=== PATIENT | male | born 1990 | race Caucasian/White ===

== ENCOUNTER 2016-05-13 20:49 | Emergency (ER) | payer OTHER ==
[~2016-05-13] VITALS: Ht 182.9 cm; Wt 79.0 kg
[2016-05-13 20:51] VITALS: Ht 182.9 cm; Wt 79.0 kg
[2016-05-13] MEDS ORDERED: IBUP800T25 PO (21:51)
[2016-05-13] MEDS ORDERED: ACET325T33 PO (21:52)
--- NOTE | 2016-05-13 22:54 | ERD ---
ER Documentation Chief Complaint Date/Time DATE: 05/13/16 TIME: 22:49 Chief Complaint painful jeremie-anal abscess x 2-3 days HPI This is a 25-year-old male presenting to the emergency department complaining of a painful lesion to his cleft of his right buttock region on/off for the past year but it has exacerbated in the past 2-3 days. Patient states that he has been seen by different urgent care yesterday and they gave him an antibiotic metronidazole which did not help him. Patient states urgent care recommended for him to follow-up with a surgeon. Patient denies any fevers. Denies any drainage. Patient states that he has taken ibuprofen for pain which did not help him. ROS All systems reviewed and are negative except as per history of present illness. Medications Home Meds Active Scripts Acetaminophen* (Tylenol*) 325 Mg Tablet, 650 MG PO Q4H Y for MILD PAIN LEVEL 1-3 , #30 TAB Prov:CEASAR VILLARREAL PA-C 05/13/16 Ibuprofen* (Motrin*) 800 Mg Tab, 800 MG PO Q6H Y for PAIN AND OR ELEVATED TEMP, #30 TAB Prov:CEASAR VILLARREAL PA-C 05/13/16 Allergies Allergies: Coded Allergies: No Known Allergy (Unverified , 05/13/16) PMhx/Soc Medical and Surgical Hx: pt denies Medical Hx, pt denies Surgical Hx Hx Alcohol Use: No Hx Substance Use: No Hx Tobacco Use: No Smoking Status: Never smoker Physical Exam Vitals Vital Signs Date Time Temp Pulse Resp B/P Pulse Ox O2 Delivery O2 Flow Rate FiO2 05/13/16 20:51 98.5 96 20 104/60 98 Physical Exam General: WD/WN, in no apparent distress, non-toxic appearing HENT: NC/AT Eyes: Conjunctiva normal Neck: Supple Pulm: Clear to auscultation, normal labored breathing; no wheezing/rales/ rhonchi heard CV: Good capillary refill GI: Non-distended, no guarding Back: No masses Ext: No clubbing, cyanosis, or edema Neuro: Moves on all fours Skin: 2cm indurated papule in the right upper cleft of buttock, no erythema, warmth or purulent Normal turgor, color, and temperature. No ulcerations or rashes noted. Psych: Normal mood Procedures/MDM This is a 25-year-old male presenting to the emergency department with a pilonidal cyst in the cleft. On examination it did not appear to be infected, the lesion was small there is no erythema or purulence or warmth. I discussed with patient that this would need to be followed up with a surgeon to get it removed. I discussed to continue the antibiotic as prescribed by the other doctor. Discussed return to the ER for any worsening signs or symptoms. was also consulted regarding patient, he has evaluated patient and agrees with plan above. Patient is stable for discharge with precautions to return the ER for any worsening symptoms. He understands and agrees. Prescription for ibuprofen Tylenol was provide Departure Diagnosis: Primary Impression: Pilonidal cyst Condition: Stable Patient Instructions: Pilonidal Cyst, Pilonidal Cyst, Not Infected Referrals: [facility] YOU HAVE RECEIVED A MEDICAL SCREENING EXAM AND THE RESULTS INDICATE THAT YOU DO NOT HAVE A CONDITION THAT REQUIRES URGENT TREATMENT IN THE EMERGENCY DEPARTMENT. FURTHER EVALUATION AND TREATMENT OF YOUR CONDITION CAN WAIT UNTIL YOU ARE SEEN IN YOUR DOCTORS OFFICE WITHIN THE NEXT 1-2 DAYS. IT IS YOUR RESPONSIBILITY TO MAKE AN APPOINTMENT FOR FOLOW-UP CARE. IF YOU HAVE A PRIMARY DOCTOR --you should call your primary doctor and schedule an appointment IF YOU DO NOT HAVE A PRIMARY DOCTOR YOU CAN CALL OUR PHYSICIAN REFERRAL HOTLINE AT IF YOU CAN NOT AFFORD TO SEE A PHYSICIAN YOU CAN CHOSE FROM THE FOLLOWING [facility] [address] [facility]. [facility] [address] [facility] [facility] [address] [facility]. [facility] [address] [facility] [address] [facility]. [facility]. [address] Additional Instructions: FOLLOW UP WITH YOUR PRIMARY CARE PHYSICIAN TOMORROW.Return to this facility if you are not improving as expected. Return to this facility if you are not improving as expected. Take all medicines as directed. BASHARDOUST,NUSHA N. PA-C May 13, 2016 22:54
== END 2016-05-13 22:24 | disposition home or self-care (01) ==
LOC: FTE 20:49
DX: L05.91 Pilonidal cyst without abscess (principal)
CPT/HCPCS: 99283

== ENCOUNTER 2016-07-08 05:01 | Emergency (ER) | payer OTHER ==
[~2016-07-08] VITALS: Ht 182.9 cm; Wt 79.5 kg
[~2016-07-08 05:01] MED LIST: ACET325T33 PO; IBUP800T25 PO
[2016-07-08 05:04] VITALS: Ht 182.9 cm; Wt 79.5 kg
[2016-07-08] MEDS ORDERED: SOD CHLORIDE 0.9% 1,000 ML IV STA (05:14)
[2016-07-08] MEDS ORDERED: ONDANSETRON 4 MG INJ IV STA (05:14)
[2016-07-08] MEDS ORDERED: morphine 4 MG/ML VIAL IV STA (05:14)
[2016-07-08] MEDS ORDERED: KETOROLAC 30 MG INJ IV STA (05:14)
[2016-07-08 05:27] LABS: ADD SCAN DIFF NO
[2016-07-08 05:30] LABS: ABNORMAL IP MESSAGE 1; HEMATOCRIT 44.7 % (42.0-52.0); HEMOGLOBIN 15.5 g/dl (14.0-18.0); MEAN CORPUSCULAR HEMOGLOBIN 30.6 pg (29.0-33.0); MEAN CORPUSCULAR HGB CONC 34.7 g/dl (32.0-37.0); MEAN CORPUSCULAR VOLUME 88.3 fl (82.0-101.0); MEAN PLATELET VOLUME 10.2 fl (7.4-10.4); PLATELET COUNT 226 10^3/UL (140-415); RED BLOOD COUNT 5.06 10^6/ul (4.70-6.10); RED CELL DISTRIBUTION WIDTH 12.1 % (11.5-14.5); WHITE BLOOD COUNT 11.6 10^3/ul (4.8-10.8)
[2016-07-08 05:47] LABS: CREATININE 0.88 mg/dl (0.61-1.24)
[2016-07-08 05:48] LABS: CALCIUM 9.7 mg/dl (8.4-10.2)
--- NOTE | 2016-07-08 05:52 | RADRPT ---
PROCEDURE: CT ABDOMEN/PELVIS WITHOUT CONTRAST CLINICAL INDICATION: 26-year-old male with left-sided abdominal pain. TECHNIQUE: The study was performed utilizing a GE [id number] VCT 64-slice CT scanner. Direct axia l sections were obtained through the abdomen and pelvis without the use of intravenous contrast mate rial. Sagittal and coronal reformations were obtained. Automated exposure control and iterative mohan nstruction techniques were utilized for this examination. The images were reviewed on a PACS workst atAtreaon. CTD/vol = 11.4 mGy; Total Exam DLP = 702.7 mGy-cm. COMPARISON: None. FINDINGS: The lung bases are unremarkable. There is no evidence for significant pleural effusion. The liver has a normal size and contour without focal areas of abnormal density. No intrahepatic nor extrahepa tic biliary ductal dilatation is seen. The gallbladder demonstrates no wall thickening nor perichole cystic fluid. No biliary stones are evident. The pancreas is without areas of abnormal attenuation. The spleen is identified and has a normal size without abnormal density. The adrenal glands are unr emarkable. The kidneys are without abnormal density. No hydroureteronephrosis nor nephroureterolithi asis is evident. The urinary bladder contains urine. There is mild retained stool within the ascendi ng and transverse colon without obstruction. The appendix is visualized and is without abnormal thic kening or surrounding inflammatory reaction. Diffuse shotty mesenteric lymph nodes are seen. There is no significant free fluid. The aortoiliac vessels are without aneurysmal dilatation. The osseous structures are intact. IMPRESSION: 1. No CT evidence for obstructive uropathy or renal calculi. 2. Mild retained stool without obstruction. 3. No CT evidence for appendicitis. 4. Shotty mesenteric lymph nodes. .Saúl Olmedo MD, MD Date Time Electronically viewed and signed by .Saúl Olmedo MD, MD on 07/08/2016 05:52 .M/
[2016-07-08] MEDS ORDERED: POTASSIUM CHLORIDE (SR) 20 MEQ TAB PO STA (06:03)
[2016-07-08 06:07] VITALS: BP 118/85; PULSE 75; RESP 16
[2016-07-08] MEDS ORDERED: IBUP-1542 PO (06:09)
[2016-07-08 06:19] LABS: URINE BLOOD (Dip) POC 3+ (NEGATIVE)
[2016-07-08 06:27] LABS: MONOCYTE # 0.7 10^3/ul (0.3-0.9)
[2016-07-08 06:29] LABS: EOSINOPHILS # 0.3 10^3/ul (0.0-0.5); NEUTROPHIL # 5.2 10^3/ul (1.6-7.5)
--- NOTE | 2016-07-08 06:35 | ERD ---
ER Documentation Chief Complaint Date/Time DATE: 07/08/16 TIME: 06:30 Chief Complaint woke up suddenly with severe left flank pain HPI 26-year-old male with no significant past medical history presenting with sudden onset of severe left-sided flank pain radiating to the left groin. His pain is a 10 out of 10. Constant since it started. No associated fever, chills , dysuria, or hematuria. He had episodes of vomiting prior to arrival. He has never had pain like this before. He denies any history of kidney stones. ROS All systems reviewed and are negative except as per history of present illness. Medications Home Meds Active Scripts Ibuprofen* (Motrin*) 600 Mg Tab, 600 MG PO Q6H Y for PAIN AND OR ELEVATED TEMP, #30 TAB Prov:ARTIS GROVE MD 07/08/16 Acetaminophen* (Tylenol*) 325 Mg Tablet, 650 MG PO Q4H Y for MILD PAIN LEVEL 1-3 , #30 TAB Prov:CEASAR VILLARREAL PA-C 05/13/16 Ibuprofen* (Motrin*) 800 Mg Tab, 800 MG PO Q6H Y for PAIN AND OR ELEVATED TEMP, #30 TAB Prov:CEASAR VILLARREAL PA-C 05/13/16 Allergies Allergies: Coded Allergies: No Known Allergy (Unverified , 05/13/16) PMhx/Soc Medical and Surgical Hx: pt denies Medical Hx, pt denies Surgical Hx History of Surgery: No Anesthesia Reaction: No Hx Neurological Disorder: No Hx Respiratory Disorders: No Hx Cardiac Disorders: No Hx Psychiatric Problems: No Hx Miscellaneous Medical Probl: No Hx Alcohol Use: No Hx Substance Use: No Hx Tobacco Use: No Smoking Status: Former smoker FmHx Family History: No diabetes Physical Exam Vitals Vital Signs Date Time Temp Pulse Resp B/P Pulse Ox O2 Delivery O2 Flow Rate FiO2 07/08/16 06:07 75 16 118/85 97 07/08/16 05:04 98.6 94 20 121/87 100 Physical Exam Const: Nontoxic, severe distress secondary to pain, writhing around in bed Head: Atraumatic Eyes: Normal Conjunctiva ENT: Normal External Ears, Nose and Mouth. Neck: Full range of motion. No meningismus. Resp: Clear to auscultation bilaterally Cardio: Regular rate and rhythm, no murmurs Abd: Soft, non distended. Left lower quadrant tender to deep palpation. No rebound or guarding. Normal bowel sounds Skin: No petechiae or rashes Back: No midline or flank tenderness Ext: No cyanosis, or edema Neur: Awake and alert Psych: Normal Mood and Affect Result Diagram: 07/08/16 0518 07/08/16 0510 Results 24 hrs Laboratory Tests Test 07/08/16 05:10 07/08/16 05:18 07/08/16 05:21 Anion Gap 16 Blood Urea Nitrogen 12mg/dl Calcium Level 9.7mg/dl Carbon Dioxide Level 29mmol/L Chloride Level 104mmol/L Creatinine 0.88mg/dl Glucose Level 73mg/dl Potassium Level 3.0mmol/L Sodium Level 146mmol/L Hematocrit 44.7% Hemoglobin 15.5g/dl Mean Corpuscular Hemoglobin 30.6pg Mean Corpuscular Hemoglobin Concent 34.7g/dl Mean Corpuscular Volume 88.3fl Mean Platelet Volume 10.2fl Platelet Count 27998^3/UL Red Blood Count 5.0610^6/ul Red Cell Distribution Width 12.1% White Blood Count 11.610^3/ul Bedside Urine Blood 3+ Bedside Urine Glucose (UA) Negative Bedside Urine Ketones (LAB) Trace Bedside Urine Leukocyte Esterase (L Negative Bedside Urine Nitrite (LAB) Negative Bedside Urine Protein (LAB) 1+ Bedside Urine pH (LAB) 6.0 Current Medications Medications (Trade) Dose Ordered Sig/Deedee Route PRN Reason Start Time Stop Time Status Last Admin Dose Admin Sodium Chloride (NS) 1,000 ml @ 1,000 mls/hr Q1H STAT IV 07/08/16 05:14 07/08/16 06:13 DC 07/08/16 05:34 Morphine Sulfate (morphine) 4 mg ONCE STAT IV 07/08/16 05:14 07/08/16 05:16 DC 07/08/16 05:34 Ondansetron HCl (Zofran Inj) 4 mg ONCE STAT IV 07/08/16 05:14 07/08/16 05:16 DC 07/08/16 05:34 Ketorolac Tromethamine (Toradol) 30 mg ONCE STAT IV 07/08/16 05:14 07/08/16 05:16 DC 07/08/16 05:34 Potassium Chloride (Klor-Con 20) 40 meq ONCE STAT PO 07/08/16 06:03 07/08/16 06:05 DC Procedures/MDM EMERGENT LABS AND DIAGNOSTIC STUDIES: Lab Results above were reviewed and interpreted by me. CBC showed mild leukocytosis BMP showed hypokalemia Urinalysis showed blood without evidence of infection Radiology Results as interpreted by Radiology below were reviewed by Anju Grove MD: CT abdomen and pelvis was done and did not show any acute abnormalities other than mild mesenteric lymphadenopathy and constipation Initial Nursing notes reviewed. Previous Medical Records requested via the Electronic Health Record. EMERGENCY DEPARTMENT COURSE / MEDICAL DECISION MAKING: The patient is presenting with severe left flank pain. His vitals are stable and he is afebrile. I suspect that he has a kidney stone. Less likely pyelonephritis or retroperitoneal hemorrhage. A CT abdomen and pelvis was done and did not show any acute abnormalities. His urinalysis did show blood, so it is possible the patient recently passed a kidney stone. I give him IV fluids, pain medications, and antiemetics with resolution of his pain. Upon reevaluation the patient has no tenderness of his abdomen. He is tolerating liquids by mouth. He was given 40 mEq of potassium orally. I discussed the results with the patient. Return precautions were discussed. I believe he is stable for discharge at this time. Patient's blood pressure was elevated (>120/80) but appears stable without evidence of hypertensive emergency or urgency. The patient was counseled about the risks of hypertension and urged to pursue outpatient monitoring and therapy within a week with their primary care physician. Departure Diagnosis: Primary Impression: Acute flank pain Additional Impressions: Nausea and vomiting Vomiting type: unspecified Vomiting Intractability: non-intractable Qualified Code: R11.2 - Non-intractable vomiting with nausea, unspecified vomiting type Hypokalemia Condition: Stable Patient Instructions: Nausea and Vomiting-Adult, Flank Pain, Uncertain Cause Referrals: [facility] YOU HAVE RECEIVED A MEDICAL SCREENING EXAM AND THE RESULTS INDICATE THAT YOU DO NOT HAVE A CONDITION THAT REQUIRES URGENT TREATMENT IN THE EMERGENCY DEPARTMENT. FURTHER EVALUATION AND TREATMENT OF YOUR CONDITION CAN WAIT UNTIL YOU ARE SEEN IN YOUR DOCTORS OFFICE WITHIN THE NEXT 1-2 DAYS. IT IS YOUR RESPONSIBILITY TO MAKE AN APPOINTMENT FOR FOLOW-UP CARE. IF YOU HAVE A PRIMARY DOCTOR --you should call your primary doctor and schedule an appointment IF YOU DO NOT HAVE A PRIMARY DOCTOR YOU CAN CALL OUR PHYSICIAN REFERRAL HOTLINE AT IF YOU CAN NOT AFFORD TO SEE A PHYSICIAN YOU CAN CHOSE FROM THE FOLLOWING [facility] [address] [facility]. [facility] [address] [facility]. [facility] [address] [facility] [address] [facility]. [facility] [address] [facility]. [facility]. [address] ARTIS RAMÍREZ MD Jul 08, 2016 06:34
[2016-07-08 07:01] LABS: ADD UMIC YES; URINE BILIRUBIN (Dip) NEGATIVE (NEGATIVE); URINE BLOOD (Dip) 3+ (NEGATIVE); URINE COLOR YELLOW (YELLOW); URINE GLUCOSE (Dip) NEGATIVE (NEGATIVE); URINE KETONES (Dip) NEGATIVE (NEGATIVE); URINE LEUKOCYTE ESTERASE (Dip) NEGATIVE (NEGATIVE); URINE NITRITE (Dip) NEGATIVE (NEGATIVE); URINE TOTAL PROTEIN (Dip) 1+ (NEGATIVE); URINE UROBILINOGEN (Dip) 1.0 E.U./dL (0.1-1.0)
[2016-07-08 07:12] LABS: MUCUS,URINE FEW; SQUAMOUS EPITHELIAL CELL,UR FEW; URINE RBCS 25-50 /HPF (0)
== END 2016-07-08 07:15 | disposition home or self-care (01) ==
LOC: E/R 05:01
DX: R10.32 Left lower quadrant pain (principal); R11.2 Nausea with vomiting, unspecified; E87.6 Hypokalemia; Z87.891 Personal history of nicotine dependence
CPT/HCPCS: 36415; 74176; 80048; 81001; 85025; 96374; 96375; J1885; J2270; J2405; J7030; Z7502; Z7610; 81003